=== PATIENT | male | born 1990 | race Caucasian/White ===

== ENCOUNTER 2022-07-02 15:39 | Observation (INO) | payer OTHER ==
[2022-07-02] MEDS ORDERED: SODIUM CHLORIDE 0.9% 1,000 ML IV STA (16:08)
--- NOTE | 2022-07-02 16:16 | ED ---
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 Patient admits to drinking too much alcohol. Occasional methamphetamine use. Occasional marijuana use. Patient did go to rehab today however was sent here secondary to alcohol level. Patient has no other complaints other than this. No trauma. Patient reports he has chronic hypertension however does not take medication for this. Patient states his blood pressure currently is very good for him. - Related Data Allergies Allergy/AdvReac Type Severity Reaction Status Date / Time No Known Allergies Allergy Verified 07/02/22 19:11 Review of Systems ROS Statement: Those systems with pertinent positive or pertinent negative responses have been documented in the HPI. ROS Other: All systems not noted in ROS Statement are negative. Constitutional: Denies: fever Eyes: Denies: eye pain ENT: Denies: ear pain Respiratory: Denies: cough Cardiovascular: Denies: chest pain Endocrine: Denies: fatigue Gastrointestinal: Denies: abdominal pain Genitourinary: Denies: dysuria Musculoskeletal: Denies: back pain Skin: Denies: rash Neurological: Denies: weakness Psychiatric: Denies: anxiety Past Medical History Past Medical History: Hypertension Additional Past Medical History / Comment(s): Pancreatitis History of Any Multi-Drug Resistant Organisms: None Reported Additional Past Surgical History / Comment(s): right leg surgery Smoking Status: Current every day smoker Past Alcohol Use History: Daily Past Drug Use History: Marijuana, Methamphetamine General Exam Limitations: no limitations General appearance: alert, in no apparent distress, appears intoxicated Head exam: Present: normocephalic Eye exam: Present: normal appearance, PERRL, EOMI, nystagmus Neck exam: Present: normal inspection Respiratory exam: Present: normal lung sounds bilaterally Cardiovascular Exam: Present: regular rate, normal rhythm GI/Abdominal exam: Present: soft. Absent: tenderness Extremities exam: Present: normal inspection Neurological exam: Present: alert Psychiatric exam: Present: normal affect, normal mood Skin exam: Present: normal color Course Vital Signs 07/02/22 07/02/22 15:40 17:08 Pulse Rate 104 H 105 H Respiratory 16 16 Rate Blood Pressure 151/106 158/104 O2 Sat by Pulse 97 97 Oximetry Medical Decision Making - Medical Decision Making Patient was reevaluated and updated - Lab Data Result diagrams: 07/02/22 16:29 07/02/22 16:29 Lab Results 07/02/22 07/02/22 Range/Units 16:29 16:29 WBC 4.7 (3.8-10.6) k/uL RBC 5.48 (4.30-5.90) m/uL Hgb 19.0 H (13.0-17.5) gm/dL Hct 52.7 (39.0-53.0) % MCV 96.3 (80.0-100.0) fL MCH 34.7 (25.0-35.0) pg MCHC 36.0 (31.0-37.0) g/dL RDW 14.6 (11.5-15.5) % Plt Count 233 (150-450) k/uL MPV 7.5 Neutrophils % 53 % Lymphocytes % 34 % Monocytes % 9 % Eosinophils % 0 % Basophils % 1 % Neutrophils # 2.5 (1.3-7.7) k/uL Lymphocytes # 1.6 (1.0-4.8) k/uL Monocytes # 0.4 (0-1.0) k/uL Eosinophils # 0.0 (0-0.7) k/uL Basophils # 0.0 (0-0.2) k/uL Sodium 144 (137-145) mmol/L Potassium 4.0 (3.5-5.1) mmol/L Chloride 105 (98-107) mmol/L Carbon Dioxide 23 (22-30) mmol/L Anion Gap 16 mmol/L BUN 8 L (9-20) mg/dL Creatinine 0.77 (0.66-1.25) mg/dL Est GFR (CKD-EPI)AfAm >90 (>60 ml/min/1.73 sqM) Est GFR (CKD-EPI)NonAf >90 (>60 ml/min/1.73 sqM) Glucose 106 H (74-99) mg/dL Calcium 9.3 (8.4-10.2) mg/dL Magnesium 2.0 (1.6-2.3) mg/dL Total Bilirubin 2.0 H (0.2-1.3) mg/dL AST 234 H (17-59) U/L ALT 123 H (4-49) U/L Alkaline Phosphatase 197 H (38-126) U/L Total Protein 8.5 H (6.3-8.2) g/dL Albumin 5.4 H (3.5-5.0) g/dL Serum Alcohol 368 H* mg/dL Disposition Clinical Impression: Alcoholic intoxication Disposition: ADMITTED IP TO THIS HOSP Is patient prescribed a controlled substance at d/c from ED?: No Referrals: None,Stated [Primary Care Provider] - 1-2 days Time of Disposition: 19:23
[2022-07-02] MEDS: THIAMINE 100 MG TAB PO SCH (16:29)
[2022-07-02 17:02] LABS: Basophils % (A) 1 %; Eosinophils % (A) 0 %; HCT 52.7 % (39.0-53.0); Lymphocytes # (A) 1.6 k/uL (1.0-4.8); Lymphocytes % (A) 34 %; MCH 34.7 pg (25.0-35.0); MCV 96.3 fL (80.0-100.0); Mean Platelet Volume 7.5; Monocytes # (A) 0.4 k/uL (0-1.0); Monocytes % (A) 9 %; Neutrophils # (A) 2.5 k/uL (1.3-7.7); Neutrophils % (A) 53 %; Platelet Count 233 k/uL (150-450); RBC 5.48 m/uL (4.30-5.90); RDW 14.6 % (11.5-15.5); WBC 4.7 k/uL (3.8-10.6)
[2022-07-02 17:14] LABS: African American GFR (CKD) >90 (>60 ml/min/1.73 sqM); Albumin 5.4 g/dL (3.5-5.0); Anion Gap 16 mmol/L; Blood Urea Nitrogen 8 mg/dL (9-20); Calcium 9.3 mg/dL (8.4-10.2); Carbon Dioxide 23 mmol/L (22-30); Chloride 105 mmol/L (98-107); Glucose 106 mg/dL (74-99); Non-African American GFR(CKD) >90 (>60 ml/min/1.73 sqM); Sodium 144 mmol/L (137-145); Total Protein 8.5 g/dL (6.3-8.2)
[2022-07-02 17:33] LABS: AST 234 U/L (17-59)
[2022-07-02 17:34] LABS: ALT 123 U/L (4-49); Alkaline Phosphatase 197 U/L (38-126)
[2022-07-02 17:57] LABS: Alcohol 368 mg/dL
[2022-07-02] MEDS ORDERED: NICOTINE 21MG/24HR PATCH TRANSDERM STA (18:46)
[2022-07-02] MEDS ORDERED: LORazepam 2 MG/ML INJ IV STA (18:51)
[2022-07-02] MEDS ORDERED: LORazepam 2 MG/ML INJ IV PRN ×2 (19:13)
[2022-07-02] MEDS ORDERED: NALOXONE 0.4 MG/ML 1 ML VIAL IV PRN (19:16)
[2022-07-02] MEDS ORDERED: ONDANSETRON 4 MG/2 ML VIAL IVP PRN (19:16)
[2022-07-02] MEDS ORDERED: MORPHINE SULFATE 4 MG/ML SYRINGE IVP PRN (19:16)
--- NOTE | 2022-07-02 19:19 | P.HPIM ---
History of Present Illness H&P Date: 07/03/22 Patient is a 32-year-old male with PMH of pancreatitis, alcohol abuse, marijuana and methamphetamine use that presents the ED for alcohol intoxication. He arrived at [facility] today and was sent to the ED because his alcohol level was 368. He is quite hysterical and anxious, states that he wants to be knocked out. He was requesting a cigarette. He is unable to quantify how much alcohol he drinks on a regular basis. He reported no other complaints. He denies any headache, lower extremity edema nausea and vomiting, fever or chills, cough, chest pain, shortness breath, palpitations, changes in urination or bowel habits. No changes in appetite or weight. He denies any dizziness, numbnes s/weakness/tingling of the extremities. He denies any auditory or visual hallucinations. He denies any suicidal or homicidal ideations. Review of systems is performed and is negative except above. General: non toxic, appears at stated age Derm: warm, dry Head: atraumatic, normocephalic, symmetric Eyes: EOMI, no lid lag, anicteric sclera Mouth: no lip lesion, mucus membranes moist Cardiovascular: S1S2 reg, no murmur, positive posterior tibial pulse bilateral Lungs: CTA bilateral, no rhonchi, no rales , no accessory muscle use Abdominal: soft, nontender to palpation, no guarding, no appreciable organomegaly Ext: no gross muscle atrophy, no edema, no contractures Neuro: no focal neuro deficits Psych: Hysterical and anxious #Alcohol intoxication #Transaminitis #Polysubstance abuse #Nicotine abuse #Anxiety Patient be placed on CIWA protocol and given Ativan as needed. Start thiamine. conveyor monitor has been ordered. LFTs appear obstructive. Abdomen nontender. Liver and gallbladder ultrasound ordered. Patient has been encourage to quit illicit substances. Nicotine patch will be ordered. Ativan as needed for anxiety. DVT prophylaxis: Ambulation Discussed with: Patient, ED physician Anticipated discharge: 1-[address]: [facility] A total of 30 minutes was spent on the care of this complex patient more than 50% of the time was spent in counseling and care coordination. Patient will be full code. Past Medical History Past Medical History: Hypertension Additional Past Medical History / Comment(s): Pancreatitis History of Any Multi-Drug Resistant Organisms: None Reported Additional Past Surgical History / Comment(s): right leg surgery Smoking Status: Current every day smoker Past Alcohol Use History: Daily Past Drug Use History: Marijuana, Methamphetamine Medications and Allergies Home Medications Medication Instructions Recorded Confirmed Type busPIRone HCl [Buspar] 10 mg PO BID 07/02/22 07/02/22 History Allergies Allergy/AdvReac Type Severity Reaction Status Date / Time No Known Allergies Allergy Verified 07/02/22 19:43 Physical Exam Vitals: Vital Signs Pulse Resp BP Pulse Ox 07/02/22 17:08 105 H 16 158/104 97 07/02/22 15:40 104 H 16 151/106 97 Intake and Output 07/02/22 07/02/22 07/02/22 06:59 14:59 22:59 Other: Weight 74.843 kg Results CBC & Chem 7: 07/02/22 16:29 07/02/22 16:29 Labs: Abnormal Lab Results - Last 24 Hours (Table) 07/02/22 07/02/22 Range/Units 16:29 16:29 Hgb 19.0 H (13.0-17.5) gm/dL BUN 8 L (9-20) mg/dL Glucose 106 H (74-99) mg/dL Total Bilirubin 2.0 H (0.2-1.3) mg/dL AST 234 H (17-59) U/L ALT 123 H (4-49) U/L Alkaline Phosphatase 197 H (38-126) U/L Total Protein 8.5 H (6.3-8.2) g/dL Albumin 5.4 H (3.5-5.0) g/dL Serum Alcohol 368 H* mg/dL
[2022-07-02] MEDS: FAMOTIDINE 20 MG TAB PO SCH (21:28)
[2022-07-02] MEDS: LORazepam 2 MG/ML INJ IV PRN (21:30)
[2022-07-03] MEDS: LORazepam 2 MG/ML INJ IV PRN ×2 (00:53→03:00)
[2022-07-03 04:05] LABS: Amphetamine Screen,Urine Detected (NotDetected); Barbiturate Screen,Urine Not Detected (NotDetected); Benzodiazepines Screen,Urine Detected (NotDetected); Cocaine Screen,Urine Not Detected (NotDetected); Methadone Screen, Urine Not Detected (NotDetected); Opiate Screen,Urine Not Detected (NotDetected); Oxycodone Screen, Urine Not Detected (NotDetected); Phencyclidine Screen,Urine Not Detected (NotDetected); Tricyclic Antidepressant,Urine Not Detected (NotDetected); Urn Cannabinoid Scrn Detected (NotDetected)
[2022-07-03 07:46] VITALS: BP 124/81; PULSE 66; RESP 18
[2022-07-03 08:51] LABS: Basophils # (A) 0.06 X 10*3/uL (0.00-0.10); Basophils % (A) 1.3 %; Eosinophils # (A) 0.02 X 10*3/uL (0.04-0.35); Eosinophils % (A) 0.4 %; HCT 47.5 % (39.6-50.0); HGB 16.8 g/dL (13.0-17.0); Immature Grans, Automated 0.4 %; Lymphocytes # (A) 1.56 X 10*3/uL (0.90-5.00); Lymphocytes % (A) 33.6 %; MCH 33.9 pg (27.0-32.0); MCHC 35.4 g/dL (32.0-37.0); Mean Platelet Volume 9.7 fL (9.5-12.2); Monocytes # (A) 0.51 X 10*3/uL (0.20-1.00); NRBC Per 100 WBC 0 /100 WBCS (0.0-0.0); Neutrophils # (A) 2.47 X 10*3/uL (1.80-7.70); Neutrophils % (A) 53.3 %; Platelet Count 228 X 10*3/uL (140-440); RBC 4.95 X 10*6/uL (4.40-5.60); RDW 15.4 % (11.5-14.5); WBC 4.64 X 10*3/uL (4.50-10.00)
[2022-07-03] MEDS ORDERED: THIAMINE 100 MG TAB PO SCH (09:00)
[2022-07-03] MEDS ORDERED: ENOXAPARIN 40 MG/0.4 ML SYRINGE SQ SCH (09:00)
[2022-07-03] MEDS ORDERED: NICOTINE 21MG/24HR PATCH TRANSDERM SCH (09:00)
[2022-07-03 09:18] LABS: African American GFR (CKD) 138.8 (60.0-200.0); Albumin 4.5 g/dL (3.8-4.9); Albumin/Globulin Ratio 1.67 (1.60-3.17); Anion Gap 14.6 mmol/L (10.00-18.00); BUN/Creat Ratio 11.31 Ratio (12.00-20.00); Blood Urea Nitrogen 9.1 mg/dL (9.0-27.0); Calcium 9.1 mg/dL (8.7-10.3); Carbon Dioxide 21.7 mmol/L (20.0-27.5); Globulin 2.7 g/dL (1.6-3.3); Non-African American GFR(CKD) 119.8 (60.0-200.0); Total Bilirubin 2.1 mg/dL (0.30-1.20); Total Protein 7.2 g/dL (6.2-8.2)
[2022-07-03] MEDS ORDERED: LORazepam 1 MG/0.5 ML VIAL IV PRN ×3 (09:38→09:39)
[2022-07-03] MEDS: FAMOTIDINE 20 MG TAB PO SCH (09:43)
[2022-07-03] MEDS: THIAMINE 100 MG TAB PO SCH (09:43)
--- NOTE | 2022-07-03 10:24 | US ---
EXAMINATION TYPE: US liver DATE OF EXAM: 07/03/2022 COMPARISON: NONE CLINICAL HISTORY: transaminitis. Transaminitis. TECHNIQUE: Multiple sonographic images of the right upper quadrant are obtained. FINDINGS: EXAM MEASUREMENTS: Liver Length: 14.6 cm Gallbladder Wall: 0.16 cm CBD: 0.37 cm Right Kidney: 10.3 x 5.4 x 5.2 cm APPLICATIONS PROGRAMMER NOTES: Exam is limited due to overlying gas. Pancreas: Limited due to gas. Liver: Appears heterogeneous in echotexture. Gallbladder: Appears anechoic. Evidence for sonographic Zimmer's sign: No CBD: Portions seen appear wnl Right Kidney: No hydronephrosis or masses seen IMPRESSION: 1. No acute ultrasound abnormality right upper quadrant ultrasound
--- NOTE | 2022-07-03 10:48 | P.DS ---
Providers Date of admission: 07/02/22 19:16 Expected date of discharge: 07/03/22 Attending physician: Umu Ahmadi MD Primary care physician: Stated None Hospital Course: Patient is a 32-year-old male with PMH of pancreatitis, alcohol abuse, marijuana and methamphetamine use that presents the ED for alcohol intoxication. He arrived at [facility] today and was sent to the ED because his alcohol level was 368. He is quite hysterical and anxious, states that he wants to be knocked out. He was requesting a cigarette. He is unable to quantify how much alcohol he drinks on a regular basis. He reported no other complaints. He denies any headache, lower extremity edema nausea and vomiting, fever or chills, cough, chest pain, shortness breath, palpitations, changes in urination or bowel habits. No changes in appetite or weight. He denies any dizziness, numbness/weakness/tingling of the extremities. He denies any auditory or visual hallucinations. He denies any suicidal or homicidal ideations. In the ED, he was noted to be hypertensive with BP 151/106 and pulse of 104. CBC showed hemoglobin of 19. CMP showed BUN of 8, glucose 106, total bilirubin of 2, AST of 234, ALT of 123, alkaline phosphatase of 197. UDS positive for amphetamine, methamphetamine, benzodiazepine and marijuana. Serum alcohol was 368. Patient was admitted for alcohol intoxication. He was placed on CIWA protocol and given Ativan as needed. Liver and gallbladder ultrasound was negative. Patient was seen and examined on 07/03/2022. He reported pain in his lower back. He continued to report anxiety. Plan is for the patient to be discharged to [facility]. General: non toxic, appears at stated age Derm: warm, dry Head: atraumatic, normocephalic, symmetric Eyes: EOMI, no lid lag, anicteric sclera Mouth: no lip lesion, mucus membranes moist Cardiovascular: S1S2 reg, no murmur Lungs: CTA bilateral, no rhonchi, no rales , no accessory muscle use Abdominal: soft, nontender to palpation, no guarding, no appreciable organomegaly Ext: no gross muscle atrophy, no edema, no contractures Neuro: no focal neuro deficits Psych: Alert and oriented Discharge diagnosis: #Alcohol intoxication #Transaminitis #Polysubstance abuse #Nicotine abuse #Anxiety Pertinent Studies: Liver and gallbladder ultrasound Patient Condition at Discharge: Stable Plan - Discharge Summary New Discharge Prescriptions: No Action busPIRone HCl [Buspar] 10 mg PO BID Discharge Medication List busPIRone HCl [Buspar] 10 mg PO BID 07/02/22 [History] Follow up Appointment(s)/Referral(s): None,Stated [Primary Care Provider] - 1-2 days Discharge/Stand Alone Forms: AA Meetings [facility], Who Do I Call?, Community Resources, Outpatient Counseling, Inp Substance Abuse Facilities
== END 2022-07-03 17:25 | disposition home or self-care (01) ==
LOC: EC 15:39 → 6NMEDSUR 19:16 → 4SSUR 07-03 05:28 → 3SCARD 07-03 06:58
PROVIDERS: ADMIT Family Medicine; ATTEND Family Medicine
DX: F10.129 Alcohol abuse with intoxication, unspecified (principal); R74.01 Elevation of levels of liver transaminase levels; F19.10 Other psychoactive substance abuse, uncomplicated; F41.9 Anxiety disorder, unspecified; I10 Essential (primary) hypertension; F17.200 Nicotine dependence, unspecified, uncomplicated; Y90.8 Blood alcohol level of 240 mg/100 ml or more; Z79.899 Other long term (current) drug therapy
CPT/HCPCS: 96372; 96376 ×3; 96361; 96374; 96375; 99285; 36415; 80053 ×2; 83735; 85025 ×2; 80306; 76705; G0378 ×4; G0480; S4990 ×2; J2060 ×2; J2405; J1650; 80320

== ENCOUNTER 2024-11-30 11:54 | Emergency (ER) | payer OTHER ==
[2024-11-30 12:08] VITALS: RESP 18
[2024-11-30] MEDS: SODIUM CHLORIDE 0.9% 1,000 ML IV SCH (12:27)
[2024-11-30] MEDS: LORazepam 2 MG/ML INJ IV STA (12:29)
[2024-11-30] MEDS: KETOROLAC 15 MG/ML 1 ML VIAL IVP STA ×2 (12:29→13:26)
[2024-11-30] MEDS: PANTOPRAZOLE 40 MG/10 ML VIAL IVP STA (12:29)
[2024-11-30] MEDS: ONDANSETRON 4 MG/2 ML VIAL IVP STA (12:30)
[2024-11-30 12:34] LABS: Basophils % (A) 1 %; Eosinophils # (A) 0.1 k/uL (0-0.7); Eosinophils % (A) 1 %; HCT 49.2 % (39.0-53.0); HGB 16.2 gm/dL (13.0-17.5); Lymphocytes # (A) 1.6 k/uL (1.0-4.8); Lymphocytes % (A) 19 %; MCH 30.8 pg (25.0-35.0); MCHC 32.9 g/dL (31.0-37.0); MCV 93.8 fL (80.0-100.0); Mean Platelet Volume 7.7; Monocytes # (A) 0.3 k/uL (0-1.0); Monocytes % (A) 4 %; Neutrophils % (A) 74 %; Platelet Count 338 k/uL (150-450); RBC 5.24 m/uL (4.30-5.90); WBC 8.1 k/uL (3.8-10.6)
[2024-11-30 12:49] LABS: ALT 17 U/L (4-49); AST 19 U/L (17-59); African American GFR (CKD) >90 (>60 ml/min/1.73 sqM); Albumin 4.9 g/dL (3.5-5.0); Alkaline Phosphatase 79 U/L (38-126); Amylase 50 U/L (30-110); Anion Gap 11 mmol/L; Blood Urea Nitrogen 14 mg/dL (9-20); Calcium 9.9 mg/dL (8.4-10.2); Carbon Dioxide 27 mmol/L (22-30); Chloride 98 mmol/L (98-107); Glucose 188 mg/dL (74-99); Lipase 133 U/L (23-300); Magnesium 1.7 mg/dL (1.6-2.3); Non-African American GFR(CKD) >90 (>60 ml/min/1.73 sqM); Potassium 4.6 mmol/L (3.5-5.1); Sodium 136 mmol/L (137-145); Total Bilirubin 0.7 mg/dL (0.2-1.3); Total Protein 7.7 g/dL (6.3-8.2)
--- NOTE | 2024-11-30 12:55 | ED ---
Abdominal Pain HPI - General Chief Complaint: Abdominal Pain Stated Complaint: ABD Pain, ETOH Withdrawal Time Seen by Provider: 11/30/24 12:09 Source: patient, RN notes reviewed Mode of arrival: ambulatory Limitations: no limitations - History of Present Illness Initial Comments: This is a 34-year-old male that presents to the Emergency Department from [facility] for evaluation of abdominal pain. Patient states that he has been having increased abdominal last couple days he does have a history of pancreatitis. States pain seems similar. Patient does admit that he is an alcoholic he was admitted to [facility] on Saturday. He is currently on Ativan. There is any significant withdrawal symptoms he does mention some nausea and vomiting. - Related Data Home Medications Medication Instructions Recorded Confirmed Acetaminophen [Tylenol] 650 mg PO Q4H PRN 11/30/24 11/30/24 Calcium Phos/D3/Magnesium/Zinc 1 tab PO TID PRN 11/30/24 11/30/24 [Fovqxqk-Qbq-Azag-Vitamin D3] Chlorpheniramine Maleate 4 mg PO Q4H PRN 11/30/24 11/30/24 [Chlor-Trimeton] Dapagliflozin Propanediol [Farxiga] 10 mg PO DAILY 11/30/24 11/30/24 Docusate [Colace] 100 mg PO BID PRN 11/30/24 11/30/24 Famotidine [Pepcid] 20 mg PO BID 11/30/24 11/30/24 Hyoscyamine Sulfate [Levsin] 0.125 mg PO QID PRN 11/30/24 11/30/24 Ibuprofen [Motrin Ib] 600 mg PO Q6H PRN 11/30/24 11/30/24 Insulin Glargine,Hum.rec.anlog 30 units SQ HS 11/30/24 11/30/24 [Lantus Solostar Pen] Insulin Regular, Human [NovoLIN R] See Protocol SQ QID 11/30/24 11/30/24 LORazepam [Ativan] 1 - 2 mg PO Q4H PRN 11/30/24 11/30/24 Loperamide HCl [Imodium A-D] 4 mg PO QID PRN MDD 16mg 11/30/24 11/30/24 Melatonin 5 mg PO HS 11/30/24 11/30/24 Multivitamins, Thera [Multivitamin 1 tab PO DAILY 11/30/24 11/30/24 (formulary)] Mylanta Regular Strength 30 ml PO Q4H PRN 11/30/24 11/30/24 cloNIDine HCL [Catapres] 0.1 - 0.3 mg PO Q4H PRN 11/30/24 11/30/24 lisinopriL [Zestril] 10 mg PO DAILY 11/30/24 11/30/24 metFORMIN HCL 1,000 mg PO BID 11/30/24 11/30/24 ondansetron HCL [Zofran] 8 mg PO Q6H PRN 11/30/24 11/30/24 traZODone HCL [Desyrel] 50 - 150 mg PO HS PRN 11/30/24 11/30/24 Previous Rx's Medication Instructions Recorded Thiamine [Vitamin B-1] 100 mg PO DAILY tab 07/03/22 Metoclopramide [Reglan] 10 mg PO TID PRN #15 tab 11/30/24 Omeprazole [PriLOSEC] 40 mg PO DAILY #14 cap 11/30/24 Ondansetron Odt [Zofran Odt] 4 mg PO Q8HR PRN #10 tab 11/30/24 Allergies Allergy/AdvReac Type Severity Reaction Status Date / Time No Known Allergies Allergy Verified 11/30/24 12:53 Review of Systems ROS Statement: Those systems with pertinent positive or pertinent negative responses have been documented in the HPI. ROS Other: All systems not noted in ROS Statement are negative. Past Medical History Past Medical History: Hypertension Additional Past Medical History / Comment(s): Pancreatitis, alcohol, History of Any Multi-Drug Resistant Organisms: None Reported Additional Past Surgical History / Comment(s): right leg surgery Smoking Status: Current every day smoker Past Alcohol Use History: Abuse, Daily, Heavy Past Drug Use History: Marijuana, Methamphetamine General Exam Limitations: no limitations General appearance: alert, in no apparent distress Head exam: Present: atraumatic, normocephalic, normal inspection Eye exam: Present: normal appearance, PERRL, EOMI. Absent: scleral icterus, conjunctival injection, periorbital swelling ENT exam: Present: normal exam, mucous membranes moist Neck exam: Present: normal inspection, full ROM. Absent: tenderness, meningismus, lymphadenopathy Respiratory exam: Present: normal lung sounds bilaterally. Absent: respiratory distress, wheezes, rales, rhonchi, stridor Cardiovascular Exam: Present: regular rate, normal rhythm, normal heart sounds. Absent: systolic murmur, diastolic murmur, rubs, gallop, clicks GI/Abdominal exam: Present: soft, tenderness, normal bowel sounds. Absent: distended, guarding, rebound, rigid Course Vital Signs 11/30/24 11/30/24 12:04 14:06 Temperature 97.7 F 98.4 F Pulse Rate 76 78 Respiratory 18 18 Rate Blood Pressure 146/93 125/70 O2 Sat by Pulse 98 98 Oximetry Medical Decision Making - Medical Decision Making Was pt. sent in by a medical professional or institution (, PA, ROVING TECHNICIAN, urgent care, hospital, or fci...) When possible be specific @ -[facility] Did you speak to anyone other than the patient for history (EMS, parent, family, police, friend...)? What history was obtained from this source @ -No Did you review nursing and triage notes (agree or disagree)? Why? @ -I reviewed and agree with nursing and triage notes Were old charts reviewed (outside hosp., previous admission, EMS record, old EKG, old radiological studies, urgent care reports/EKG's, fci records)? Report findings @ -No old charts were reviewed Differential Diagnosis (chest pain, altered mental status, abdominal pain women, abdominal pain men, vaginal bleeding, weakness, fever, dyspnea, syncope, headache, dizziness, GI bleed, back pain, seizure, CVA, palpatations, mental health, musculoskeletal)? @ -Differential Abdominal Pain Men: Appendicitis, cholecystitis, diverticulosis, ischemic bowel, pancreatitis, hepatitis, UTI, gastroenteritis, AAA, incarcerated hernia, bowel obstruction, constipation, inflammatory bowel, hepatitis, peptic ulcer disease, splenic infarction, perforated viscus, testicular torsion, this is not meant to be an all-inclusive list EKG interpreted by me (3pts min.). @ -None X-rays interpreted by me (1pt min.). @ -None done CT interpreted by me (1pt min.). @ -None done U/S interpreted by me (1pt. min.). @ -None done What testing was considered but not performed or refused? (CT, X-rays, U/S, labs)? Why? @ -None What meds were considered but not given or refused? Why? @ -None Did you discuss the management of the patient with other professionals (professionals i.e. , PA, ROVING TECHNICIAN, lab, RT, psych nurse, executive secretary social welfare, lime kiln worker helper, teacher, aboriginal liaison officer, medical case worker)? Give summary @ -No Was smoking cessation discussed for >3mins.? @ -No Was critical care preformed (if so, how long)? @ -No Were there social determinants of health that impacted care today? How? (Homelessness, low income, unemployed, alcoholism, drug addiction, transportation, low edu. Level, literacy, decrease access to med. care, assisted, rehab)? @ -No Was there de-escalation of care discussed even if they declined (Discuss DNR or withdrawal of care, Hospice)? DNR status @ -No What co-morbidities impacted this encounter? (DM, HTN, Smoking, COPD, CAD, Cancer, CVA, ARF, Chemo, Hep., AIDS, mental health diagnosis, sleep apnea, morbid obesity)? @ -alcohol abuse Was patient admitted / discharged? Hospital course, mention meds given and route, prescriptions, significant lab abnormalities, going to OR and other pertinent info. @ -Discharged patient laboratory studies unremarkable patient has no obvious distress, no withdrawal symptoms currently. [facility] Undiagnosed new problem with uncertain prognosis? @ -No Drug Therapy requiring intensive monitoring for toxicity (Heparin, Nitro, Insulin, Cardizem)? @ -No Were any procedures done? @ -No Diagnosis/symptom? @ -Abdominal pain, alcohol abuse Acute, or Chronic, or Acute on Chronic? @ -Acute Uncomplicated (without systemic symptoms) or Complicated (systemic symptoms)? @ -Uncomplicated Side effects of treatment? @ -No Exacerbation, Progression, or Severe Exacerbation? @ -No Poses a threat to life or bodily function? How? (Chest pain, USA, MA, pneumonia, PE, COPD, DKA, ARF, appy, cholecystitis, CVA, Diverticulitis, Homicidal, Suicidal, threat to staff... and all critical care pts) @ -No - Lab Data Result diagrams: 11/30/24 12:26 11/30/24 12:26 Lab Results 11/30/24 11/30/24 Range/Units 12:26 12:26 WBC 8.1 (3.8-10.6) k/uL RBC 5.24 (4.30-5.90) m/uL Hgb 16.2 (13.0-17.5) gm/dL Hct 49.2 (39.0-53.0) % MCV 93.8 (80.0-100.0) fL MCH 30.8 (25.0-35.0) pg MCHC 32.9 (31.0-37.0) g/dL RDW 14.0 (11.5-15.5) % Plt Count 338 (150-450) k/uL MPV 7.7 Neutrophils % 74 % Lymphocytes % 19 % Monocytes % 4 % Eosinophils % 1 % Basophils % 1 % Neutrophils # 6.0 (1.3-7.7) k/uL Lymphocytes # 1.6 (1.0-4.8) k/uL Monocytes # 0.3 (0-1.0) k/uL Eosinophils # 0.1 (0-0.7) k/uL Basophils # 0.0 (0-0.2) k/uL Sodium 136 L (137-145) mmol/L Potassium 4.6 (3.5-5.1) mmol/L Chloride 98 (98-107) mmol/L Carbon Dioxide 27 (22-30) mmol/L Anion Gap 11 mmol/L BUN 14 (9-20) mg/dL Creatinine 0.64 L (0.66-1.25) mg/dL Est GFR (CKD-EPI)AfAm >90 (>60 ml/min/1.73 sqM) Est GFR (CKD-EPI)NonAf >90 (>60 ml/min/1.73 sqM) Glucose 188 H (74-99) mg/dL Calcium 9.9 (8.4-10.2) mg/dL Magnesium 1.7 (1.6-2.3) mg/dL Total Bilirubin 0.7 (0.2-1.3) mg/dL AST 19 (17-59) U/L ALT 17 (4-49) U/L Alkaline Phosphatase 79 (38-126) U/L Total Protein 7.7 (6.3-8.2) g/dL Albumin 4.9 (3.5-5.0) g/dL Amylase 50 (30-110) U/L Lipase 133 (23-300) U/L Disposition Clinical Impression: Abdominal pain, Alcohol abuse Disposition: HOME SELF-CARE Condition: Stable Instructions (If sedation given, give patient instructions): Abdominal Pain (ED) Additional Instructions: Please return to the Emergency Department if symptoms worsen or any other concerns. Prescriptions: Omeprazole [PriLOSEC] 40 mg PO DAILY #14 cap Metoclopramide [Reglan] 10 mg PO TID PRN #15 tab PRN Reason: Nausea Ondansetron Odt [Zofran Odt] 4 mg PO Q8HR PRN #10 tab PRN Reason: Nausea Is patient prescribed a controlled substance at d/c from ED?: No Referrals: None,Stated [Primary Care Provider] - 1-2 days Time of Disposition: 13:48
[2024-11-30] MEDS: LIDOCAINE VISCOUS 2% 15 ML CUP PO ONE (13:56)
[2024-11-30] MEDS: MAG HYDROX/AL HYDROX/SIMETH 30 ML CUP PO STA (13:56)
[2024-11-30 14:08] VITALS: BP 125/70; PULSE 78; TEMP 98.4
== END 2024-11-30 14:08 | disposition home or self-care (01) ==
LOC: EC 11:54
DX: F10.10 Alcohol abuse, uncomplicated (principal); F17.200 Nicotine dependence, unspecified, uncomplicated
CPT/HCPCS: 36415; 80053; 82150; 83690; 83735; 85025; 99284; 96374; 96375 ×3; 96376; 96361 ×2; J2060; J2405; J1885; J2470

== ENCOUNTER 2024-12-13 12:45 | Emergency (ER) | payer OTHER ==
--- NOTE | 2024-12-13 13:06 | ED ---
General Adult HPI - General Stated complaint: Abd pain Time Seen by Provider: 12/13/24 12:48 Source: patient, EMS, RN notes reviewed Mode of arrival: EMS Limitations: no limitations - History of Present Illness Initial comments: 34-year-old male presents emergency department complaint abdominal pain. Patient been having this abdominal last several weeks. Patient was here prior for abdominal pain does have a history of pancreatitis patient is currently at [facility] denies any alcohol or drug currently because he has been at [facility] for several weeks. Patient denies any fevers or chills having frequent emesis and noticed some specks of bright bright red blood. Patient denies any associated symptoms. - Related Data Home Medications Medication Instructions Recorded Confirmed Acetaminophen [Tylenol] 650 mg PO Q4H PRN 11/30/24 11/30/24 Calcium Phos/D3/Magnesium/Zinc 1 tab PO TID PRN 11/30/24 11/30/24 [Vanfgyh-Wbz-Smef-Vitamin D3] Chlorpheniramine Maleate 4 mg PO Q4H PRN 11/30/24 11/30/24 [Chlor-Trimeton] Dapagliflozin Propanediol [Farxiga] 10 mg PO DAILY 11/30/24 11/30/24 Docusate [Colace] 100 mg PO BID PRN 11/30/24 11/30/24 Famotidine [Pepcid] 20 mg PO BID 11/30/24 11/30/24 Hyoscyamine Sulfate [Levsin] 0.125 mg PO QID PRN 11/30/24 11/30/24 Ibuprofen [Motrin Ib] 600 mg PO Q6H PRN 11/30/24 11/30/24 Insulin Glargine,Hum.rec.anlog 30 units SQ HS 11/30/24 11/30/24 [Lantus Solostar Pen] Insulin Regular, Human [NovoLIN R] See Protocol SQ QID 11/30/24 11/30/24 LORazepam [Ativan] 1 - 2 mg PO Q4H PRN 11/30/24 11/30/24 Loperamide HCl [Imodium A-D] 4 mg PO QID PRN MDD 16mg 11/30/24 11/30/24 Melatonin 5 mg PO HS 11/30/24 11/30/24 Multivitamins, Thera [Multivitamin 1 tab PO DAILY 11/30/24 11/30/24 (formulary)] Mylanta Regular Strength 30 ml PO Q4H PRN 11/30/24 11/30/24 cloNIDine HCL [Catapres] 0.1 - 0.3 mg PO Q4H PRN 11/30/24 11/30/24 lisinopriL [Zestril] 10 mg PO DAILY 11/30/24 11/30/24 metFORMIN HCL 1,000 mg PO BID 11/30/24 11/30/24 ondansetron HCL [Zofran] 8 mg PO Q6H PRN 11/30/24 11/30/24 traZODone HCL [Desyrel] 50 - 150 mg PO HS PRN 11/30/24 11/30/24 Previous Rx's Medication Instructions Recorded Thiamine [Vitamin B-1] 100 mg PO DAILY tab 07/03/22 Metoclopramide [Reglan] 10 mg PO TID PRN #15 tab 11/30/24 Omeprazole [PriLOSEC] 40 mg PO DAILY #14 cap 11/30/24 Ondansetron Odt [Zofran Odt] 4 mg PO Q8HR PRN #10 tab 11/30/24 Omeprazole [PriLOSEC] 40 mg PO DAILY #14 cap 12/13/24 Sucralfate [Carafate] 1 gm PO BID #30 tablet 12/13/24 Allergies Allergy/AdvReac Type Severity Reaction Status Date / Time No Known Allergies Allergy Verified 12/13/24 13:04 Review of Systems ROS Statement: Those systems with pertinent positive or pertinent negative responses have been documented in the HPI. ROS Other: All systems not noted in ROS Statement are negative. Past Medical History Past Medical History: GERD/Reflux, Hypertension Additional Past Medical History / Comment(s): Pancreatitis, alcohol, History of Any Multi-Drug Resistant Organisms: None Reported Additional Past Surgical History / Comment(s): right leg surgery, cysts drained from pancreas Past Psychological History: Anxiety Smoking Status: Current every day smoker Past Alcohol Use History: Abuse, Daily, Heavy Past Drug Use History: Marijuana, Methamphetamine General Exam Limitations: no limitations General appearance: alert, in no apparent distress Head exam: Present: atraumatic, normocephalic, normal inspection Eye exam: Present: normal appearance, PERRL, EOMI. Absent: scleral icterus, conjunctival injection, periorbital swelling ENT exam: Present: normal exam, normal oropharynx, mucous membranes moist Neck exam: Present: normal inspection, full ROM. Absent: tenderness, meningismus, lymphadenopathy Respiratory exam: Present: normal lung sounds bilaterally. Absent: respiratory distress, wheezes, rales, rhonchi, stridor Cardiovascular Exam: Present: regular rate, normal rhythm, normal heart sounds. Absent: systolic murmur, diastolic murmur, rubs, gallop, clicks GI/Abdominal exam: Present: soft, tenderness, normal bowel sounds. Absent: distended, guarding, rebound, rigid Course Vital Signs 12/13/24 12:56 Temperature 98.0 F Pulse Rate 84 Respiratory 20 Rate Blood Pressure 139/82 O2 Sat by Pulse 99 Oximetry Medical Decision Making - Medical Decision Making Was pt. sent in by a medical professional or institution (, PA, DOG LICENSER, urgent care, hospital, or penitentiary...) When possible be specific @ -[facility] Did you speak to anyone other than the patient for history (EMS, parent, family, police, friend...)? What history was obtained from this source @ -No Did you review nursing and triage notes (agree or disagree)? Why? @ -I reviewed and agree with nursing and triage notes Were old charts reviewed (outside hosp., previous admission, EMS record, old EKG, old radiological studies, urgent care reports/EKG's, penitentiary records)? Report findings @ -No old charts were reviewed Differential Diagnosis (chest pain, altered mental status, abdominal pain women, abdominal pain men, vaginal bleeding, weakness, fever, dyspnea, syncope, head ache, dizziness, GI bleed, back pain, seizure, CVA, palpatations, mental health, musculoskeletal)? @ -Differential Abdominal Pain Men: Appendicitis, cholecystitis, diverticulosis, ischemic bowel, pancreatitis, hepatitis, UTI, gastroenteritis, AAA, incarcerated hernia, bowel obstruction, constipation, inflammatory bowel, hepatitis, peptic ulcer disease, splenic infarction, perforated viscus, testicular torsion, this is not meant to be an all-inclusive list EKG interpreted by me (3pts min.). @ -None X-rays interpreted by me (1pt min.). @ -None done CT interpreted by me (1pt min.). @ -CT of the abdomen pelvis showing evidence of chronic pancreatitis, no other acute process U/S interpreted by me (1pt. min.). @ -None done What testing was considered but not performed or refused? (CT, X-rays, U/S, labs)? Why? @ -None What meds were considered but not given or refused? Why? @ -None Did you discuss the management of the patient with other professionals (professionals i.e. Dr., PA, DOG LICENSER, lab, RT, psych nurse, vp digital marketing social media and crm, oil well cable tool operator, teacher, chief revenue officer, registered nurse hh case manager)? Give summary @ -No Was smoking cessation discussed for >3mins.? @ -No Was critical care preformed (if so, how long)? @ -No Were there social determinants of health that impacted care today? How? (Homelessness, low income, unemployed, alcoholism, drug addiction, transportation, low edu. Level, literacy, decrease access to med. care, skilled nursing, rehab)? @ -No Was there de-escalation of care discussed even if they declined (Discuss DNR or withdrawal of care, Hospice)? DNR status @ -No What co-morbidities impacted this encounter? (DM, HTN, Smoking, COPD, CAD, Cancer, CVA, ARF, Chemo, Hep., AIDS, mental health diagnosis, sleep apnea, morbid obesity)? @ -Alcohol abuse Was patient admitted / discharged? Hospital course, mention meds given and route, prescriptions, significant lab abnormalities, going to OR and other pertinent info. @ -Discharge patient presented for abdominal pain, nausea vomiting. CT shows evidence of chronic pancreatitis. Patient does have some nausea vomiting may have underlying gastric issues. Patient was discharged with Carafate to continue esomeprazole and return for as discussed. Undiagnosed new problem with uncertain prognosis? @ -No Drug Therapy requiring intensive monitoring for toxicity (Heparin, Nitro, Insulin, Cardizem)? @ -No Were any procedures done? @ -No Diagnosis/symptom? @Abdominal pain Acute, or Chronic, or Acute on Chronic? @ -Acute Uncomplicated (without systemic symptoms) or Complicated (systemic symptoms)? @ -Uncomplicated Side effects of treatment? @ -No Exacerbation, Progression, or Severe Exacerbation? @ -No Poses a threat to life or bodily function? How? (Chest pain, USA, ME, pneumonia, PE, COPD, DKA, ARF, appy, cholecystitis, CVA, Diverticulitis, Homicidal, Suicidal, threat to staff... and all critical care pts) @ -No - Lab Data Result diagrams: 12/13/24 13:04 12/13/24 13:04 Lab Results 12/13/24 12/13/24 Range/Units 13:04 13:04 WBC 9.31 (4.50-10.00) 10*3/uL RBC 4.69 (4.40-5.60) 10*6/uL Hgb 14.9 (13.0-17.0) g/dL Hct 43.0 (39.6-50.0) % MCV 91.7 (80.0-97.0) fL MCH 31.8 (27.0-32.0) pg MCHC 34.7 (32.0-37.0) g/dL Plt Count 500 H (140-440) 10*3/uL MPV 9.1 L (9.5-12.2) fL Immature Gran % (Auto) 0.2 % Neutrophils % 68.3 % Lymphocytes % 22.1 % Monocytes % 7.0 % Eosinophils % 1.5 % Basophils % 0.9 % Immature Gran # 0.02 (0.00-0.04) 10*3/uL Neutrophils # 6.36 (1.80-7.70) 10*3/uL Lymphocytes # 2.06 (0.90-5.00) 10*3/uL Monocytes # 0.65 (0.20-1.00) 10*3/uL Eosinophils # 0.14 (0.04-0.35) 10*3/uL Basophils # 0.08 (0.00-0.10) 10*3/uL Sodium 138 (137-145) mmol/L Potassium 4.5 (3.5-5.1) mmol/L Chloride 101 (98-107) mmol/L Carbon Dioxide 26 (22-30) mmol/L Anion Gap 11 mmol/L BUN 15 (9-20) mg/dL Creatinine 0.52 L (0.66-1.25) mg/dL Est GFR (CKD-EPI)AfAm >90 (>60 ml/min/1.73 sqM) Est GFR (CKD-EPI)NonAf >90 (>60 ml/min/1.73 sqM) Glucose 120 H (74-99) mg/dL Calcium 10.4 H (8.4-10.2) mg/dL Magnesium 1.8 (1.6-2.3) mg/dL Total Bilirubin 0.9 (0.2-1.3) mg/dL AST 34 (17-59) U/L ALT 50 H (4-49) U/L Alkaline Phosphatase 159 H (38-126) U/L Total Protein 7.4 (6.3-8.2) g/dL Albumin 4.7 (3.5-5.0) g/dL Amylase 57 (30-110) U/L Lipase 201 (23-300) U/L Serum Alcohol <10 mg/dL Disposition Clinical Impression: Abdominal pain, Chronic pancreatitis Disposition: HOME SELF-CARE Condition: Stable Instructions (If sedation given, give patient instructions): Abdominal Pain (ED) Additional Instructions: Please return to the Emergency Department if symptoms worsen or any other concerns. Prescriptions: Sucralfate [Carafate] 1 gm PO BID #30 tablet Omeprazole [PriLOSEC] 40 mg PO DAILY #14 cap Is patient prescribed a controlled substance at d/c from ED?: No Referrals: Nonstaff,Physician [Primary Care Provider] - 1-2 days Time of Disposition: 14:12
[2024-12-13] MEDS: SODIUM CHLORIDE 0.9% 1,000 ML IV SCH (13:18)
[2024-12-13 13:19] LABS: Basophils # (A) 0.08 10*3/uL (0.00-0.10); Basophils % (A) 0.9 %; Eosinophils # (A) 0.14 10*3/uL (0.04-0.35); Eosinophils % (A) 1.5 %; HGB 14.9 g/dL (13.0-17.0); Lymphocytes # (A) 2.06 10*3/uL (0.90-5.00); Lymphocytes % (A) 22.1 %; MCH 31.8 pg (27.0-32.0); MCHC 34.7 g/dL (32.0-37.0); MCV 91.7 fL (80.0-97.0); Mean Platelet Volume 9.1 fL (9.5-12.2); Monocytes # (A) 0.65 10*3/uL (0.20-1.00); Neutrophils # (A) 6.36 10*3/uL (1.80-7.70); Neutrophils % (A) 68.3 %; Platelet Count 500 10*3/uL (140-440); RBC 4.69 10*6/uL (4.40-5.60); RDW 13.7 % (11.5-14.5); WBC 9.31 10*3/uL (4.50-10.00)
[2024-12-13] MEDS: droPERidol 5 MG/2 ML VIAL IVP ONE (13:20)
[2024-12-13] MEDS: LIDOCAINE VISCOUS 2% 15 ML CUP PO ONE (13:22)
[2024-12-13] MEDS: MAG HYDROX/AL HYDROX/SIMETH 30 ML CUP PO STA (13:22)
[2024-12-13] MEDS: SUCRALFATE 1 GM TAB PO STA (13:25)
[2024-12-13 13:35] LABS: ALT 50 U/L (4-49); AST 34 U/L (17-59); African American GFR (CKD) >90 (>60 ml/min/1.73 sqM); Albumin 4.7 g/dL (3.5-5.0); Alcohol <10 mg/dL; Alkaline Phosphatase 159 U/L (38-126); Amylase 57 U/L (30-110); Anion Gap 11 mmol/L; Blood Urea Nitrogen 15 mg/dL (9-20); Calcium 10.4 mg/dL (8.4-10.2); Carbon Dioxide 26 mmol/L (22-30); Chloride 101 mmol/L (98-107); Glucose 120 mg/dL (74-99); Lipase 201 U/L (23-300); Magnesium 1.8 mg/dL (1.6-2.3); Non-African American GFR(CKD) >90 (>60 ml/min/1.73 sqM); Potassium 4.5 mmol/L (3.5-5.1); Sodium 138 mmol/L (137-145); Total Bilirubin 0.9 mg/dL (0.2-1.3); Total Protein 7.4 g/dL (6.3-8.2)
--- NOTE | 2024-12-13 14:07 | CT ---
EXAMINATION TYPE: CT abdomen pelvis w con DATE OF EXAM: 12/13/2024 COMPARISON: None CLINICAL INDICATION: Male, 34 years old with history of Abdominal pain history of pancreatitis; PHH, ABDOMINAL PAIN, HX PANCREATITIS. TECHNIQUE: Performed without Oral Contrast and with IV Contrast, patient injected with 100 mL of Isovue 300. CT DLP: 680.[address] CTDI: mGy Automated exposure control for dose reduction was used. FINDINGS: The lung bases are clear. The gallbladder is normal without distention, wall thickening, pericholecystic fluid or gallstones. T here is no biliary ductal dilatation. There is no focal mass or organomegaly involving the liver, pancreas, spleen or adrenal glands. There are scattered calcifications in the pancreas consistent with chronic pancreatitis. There is no solid renal mass or hydronephrosis and there is homogeneous contrast enhancement of the r enal parenchyma. The caliber the abdominal aorta is normal is no retroperitoneal adenopathy or hemorr vince. The bowel loops are normal in caliber and there is no evidence of dilatation or obstruction. No infla mmatory changes are identified in the bowel wall or mesentery. There is no free intraperitoneal air or fluid. No pelvic mass, free fluid, abscess or adenopathy. The osseous structures and soft tissues are intact. IMPRESSION: 1. Chronic pancreatitis. 2. No acute changes within the abdomen or pelvis. [facility], , 12/13/2024 2:04 PM
[2024-12-13 14:28] VITALS: BP 128/78; PULSE 80; RESP 16; TEMP 98.2
== END 2024-12-13 14:53 | disposition home or self-care (01) ==
LOC: SUPCPDRO 12:45 → EC 12:45
DX: K86.1 Other chronic pancreatitis (principal); F10.10 Alcohol abuse, uncomplicated; F17.200 Nicotine dependence, unspecified, uncomplicated; Y90.0 Blood alcohol level of less than 20 mg/100 ml
CPT/HCPCS: 36415; 80053; 82150; 83690; 83735; 85025; 74177; 99284; 96374; 96361; G0480; Q9967; J1790; 80320